=== PATIENT | female | born 1995 | race Caucasian/White ===

== ENCOUNTER 2017-02-10 18:54 | Emergency (ER) | payer OTHER ==
--- NOTE | 2017-02-10 19:59 | ED CLINICAL REPORT ---
Clinical Report - Physicians/Mid Levels [facility] [address] [place] [address] 02/10/2017 18:56 Patient: ABHIJIT APONTE Time Seen: 19:01. Arrived- By private vehicle. Historian- patient. HISTORY OF PRESENT ILLNESS Chief Complaint: MY THYROID IS SWELLING AND CLOSING MY THROAT. This started just prior to arrival Ms Aponte has a history of goiter. She is being treated for that by an animal nursery worker. Today while driving in her car she felt a ball like sensation in her throat. She took slow DEEP breaths, trying to calm herself. and is still present. (SUB ACUTE ONSET). Pain described as mild. No sore throat, mouth sores, nasal congestion, ear pain or toothache. No swollen jaw or face, jaw pain or facial pain. (Driving home, "Thyroid feels big. Throat feels tight and sqweeezing Vision goes weird and has spots. feels far away and faint." Ice and deep breaths were tried to relieve symptoms). Similar symptoms previously: Twice. Recent medical care: The patient was seen recently by a health care provider. ( Technical Sales Representative). REVIEW OF SYSTEMS No fatigue, fever, double vision, ear pain or sore throat. No chest pain, cough, difficulty breathing, abdominal pain or difficulty with urination. PAST HISTORY PCP JACKELYN F ENDOCRINEOLOGIST OPS: NONE [facility]OSP: [facility]. SOCIAL HISTORY Never smoker. ADDITIONAL NOTES The nursing notes have been reviewed (Nurse notes "swelling to anterior neck and ice pack. I confirm the ice pack but not the swelling.). PHYSICAL EXAM Vital Signs: 02/10/2017 20:03 HR: 81. O2 saturation: 98%. 02/10/2017 19:05 BP: 131/72. HR: 103. RR: 18. O2 saturation: 100%. Temp: 98.7 F. Appearance: Alert. (Normal speaking voice Initially anxious but rapidly calms.). Eyes: Pupils equal, round and reactive to light. Conjunctivae and eyelids normal. ENT: Pharynx normal. Lips normal. No trismus present. Uvula midline. No tonsillar exudate, peritonsillar mass, muffled or hoarse voice or drooling. The mucous membranes are not dry. Neck: Trachea midline. No adenopathy. Thyroid normal. (I cannot appreciate the goiter on palpation. There is normal thyroid cartilage crepitance on side to side movement.). CVS: Heart sounds normal. Respiratory: No respiratory distress. Breath sounds normal. Abdomen: Soft and nontender. PROGRESS AND PROCEDURES Course of Care: 12:45 02/13/17. Voluntary hyperventilation did not reproduce symptoms. No direct or indirect evidence of neck swelling or airway compromise. Given the ball like nature of the sensation and normal exam, the best explanation is cricopharyngeus muscle spasm not neck mass effect. The patient's goiter is of modest size. The other symptoms were very likely due patient's efforts to calm her self by hyperventilation. She feels better at the time of discharge. Disposition: Discharged. Condition: good. 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 INSTRUCTIONS (FOR ANOTHER EPISODE SLOW SHALLOW BREATHING IMMEDIATE RECHECK FOR DIFFICULTY SWALLOWING, DIFFICULTY BREATHING, SIGNIFICANT PAIN, OR CHANGED VOICE). Follow-up: Follow up with your doctor in seven days. Understanding of the discharge instructions verbalized by patient and family. (Electronically signed by Von Espinoza MD 02/13/2017 12:53)
--- NOTE | 2017-02-10 19:59 | ED CLINICAL REPORT ---
Clinical Report - Physicians/Mid Levels [facility] [address] [place] [address] 02/10/2017 18:56 Patient: ABHIJIT APONTE Time Seen: 19:01. Arrived- By private vehicle. Historian- patient. HISTORY OF PRESENT ILLNESS Chief Complaint: MY THYROID IS SWELLING AND CLOSING MY THROAT. This started just prior to arrival Ms Aponte has a history of goiter. She is being treated for that by an chef manager. Today while driving in her car she felt a ball like sensation in her throat. She took slow DEEP breaths, trying to calm herself. and is still present. (SUB ACUTE ONSET). Pain described as mild. No sore throat, mouth sores, nasal congestion, ear pain or toothache. No swollen jaw or face, jaw pain or facial pain. (Driving home, "Thyroid feels big. Throat feels tight and sqweeezing Vision goes weird and has spots. feels far away and faint." Ice and deep breaths were tried to relieve symptoms). Similar symptoms previously: Twice. Recent medical care: The patient was seen recently by a health care provider. ( Slot Supervisor). REVIEW OF SYSTEMS No fatigue, fever, double vision, ear pain or sore throat. No chest pain, cough, difficulty breathing, abdominal pain or difficulty with urination. PAST HISTORY PCP JACKELYN F ENDOCRINEOLOGIST OPS: NONE [facility]OSP: [facility]. SOCIAL HISTORY Never smoker. ADDITIONAL NOTES The nursing notes have been reviewed (Nurse notes "swelling to anterior neck and ice pack. I confirm the ice pack but not the swelling.). PHYSICAL EXAM Vital Signs: 02/10/2017 20:03 HR: 81. O2 saturation: 98%. 02/10/2017 19:05 BP: 131/72. HR: 103. RR: 18. O2 saturation: 100%. Temp: 98.7 F. Appearance: Alert. (Normal speaking voice Initially anxious but rapidly calms.). Eyes: Pupils equal, round and reactive to light. Conjunctivae and eyelids normal. ENT: Pharynx normal. Lips normal. No trismus present. Uvula midline. No tonsillar exudate, peritonsillar mass, muffled or hoarse voice or drooling. The mucous membranes are not dry. Neck: Trachea midline. No adenopathy. Thyroid normal. (I cannot appreciate the goiter on palpation. There is normal thyroid cartilage crepitance on side to side movement.). CVS: Heart sounds normal. Respiratory: No respiratory distress. Breath sounds normal. Abdomen: Soft and nontender. PROGRESS AND PROCEDURES Course of Care: 12:45 02/13/17. Voluntary hyperventilation did not reproduce symptoms. No direct or indirect evidence of neck swelling or airway compromise. Given the ball like nature of the sensation and normal exam, the best explanation is cricopharyngeus muscle spasm not neck mass effect. The patient's goiter is of modest size. The other symptoms were very likely due patient's efforts to calm her self by hyperventilation. She feels better at the time of discharge. Disposition: Discharged. Condition: good. 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 INSTRUCTIONS (FOR ANOTHER EPISODE SLOW SHALLOW BREATHING IMMEDIATE RECHECK FOR DIFFICULTY SWALLOWING, DIFFICULTY BREATHING, SIGNIFICANT PAIN, OR CHANGED VOICE). Follow-up: Follow up with your doctor in seven days. Understanding of the discharge instructions verbalized by patient and family. (Electronically signed by Von Espinoza MD 02/13/2017 12:53)
--- NOTE | 2017-02-10 19:59 | ED NURSING NOTES ---
Clinical Report - Nurses [facility] [address] [place] [address] 02/10/2017 18:56 Patient: ABHIJIT APONTE TRIAGE Triage time 1900. Chief Complaint: (thyroid swelling). Alert. No acute distress. (in distress, anxious). --19:11 Heather Rosario 19:05 02/10/17. BP: 131/72. HR: 103. RR: 18. O2 saturation: 100%. Temp: 98.7 F. Pain level now 5/10. --19:11 Heather Rosario. Weight: 81.6 kg. Height/Length: 68 inches. BMI: 27.4. --19: Heather Rosario. Medications Vitamin D Oral. --19: Heather Rosario. Allergies No Known Drug Allergy. --19: Heather Rosario. History Arrived by private vehicle. Historian: patient. Accompanied by family. This started today. 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 (known cysts, normal labs, seeing thyroid Dr, placed on Vit D). PAST MEDICAL HX: Immunizations: up-to-date. SOCIAL HX: Never smoker. Occasional alcohol use. History of drug use: marijuana. --19:11 Heather Rosario. PROBLEMS: Gastroesophageal Reflux Disease. --19:07 Heather Rosario. PHYSICAL ASSESSMENT Ambulatory to room. ( Swelling to anterior neck, pt with ice pack on to help). GENERAL / NEURO / PSYCH: Alert. Oriented X 4. Appears anxious and in distress. HEENT: Pupils equal, round and reactive to light. No facial asymmetry noted. Mucous membranes are pink. RESPIRATORY: Respirations not labored. Chest nontender. Breath sounds within normal limits. CVS: Normal sinus rhythm noted. Capillary refill less than 2 seconds. Pulses within normal limits. GI / : Abdomen soft and nontender and normal bowel sounds. SKIN: Skin is warm but moist. --19:12 Heather Rosario. NURSING PROGRESS NOTES Reassurance given. Call light placed in reach. Bed placed in lowest position. Brakes of bed on. Patient ready for evaluation- chart flagged. --19:12 Heather Roasrio 20:03. The patient is calm and resting quietly. RESPIRATORY: No respiratory distress. SKIN: Skin is warm and dry. Skin color within normal limits. --21:19 Mohit Sanchez R.N. DISPOSITION / DISCHARGE Departure time: 20:05. Condition at departure: stable. No learning barriers present. Discharge instructions provided and reviewed with shipping clerk and the patient. Patient and shipping clerk verbalized understanding. Written instructions provided in Kyrgyz. The patient was discharged home and accompanied by shipping clerk. She left the Emergency Department ambulatory and via private vehicle. Spoke Maker driving. FALL RISK ASSESSMENT: Fall risk assessment completed. No fall risk identified. --20:05 Mohit Sanchez R.N. 20:03 02/10/17. HR: 81. O2 saturation: 98% on room air. --20:05 Mohit Sanchez R.N. Locked/Released at 02/10/2017 21:19 by Mohit Sanchez R.N.
--- NOTE | 2017-02-10 19:59 | ED NURSING NOTES ---
Clinical Report - Nurses [facility] [address] [place] [address] 02/10/2017 18:56 Patient: ABHIJIT APONTE TRIAGE Triage time 1900. Chief Complaint: (thyroid swelling). Alert. No acute distress. (in distress, anxious). --19:11 Heather Rosario 19:05 02/10/17. BP: 131/72. HR: 103. RR: 18. O2 saturation: 100%. Temp: 98.7 F. Pain level now 5/10. --19:11 Heather Rosario. Weight: 81.6 kg. Height/Length: 68 inches. BMI: 27.4. --19: Heather Rosario. Medications Vitamin D Oral. --19: Heather Rosario. Allergies No Known Drug Allergy. --19: Heather Rosario. History Arrived by private vehicle. Historian: patient. Accompanied by family. This started today. 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 (known cysts, normal labs, seeing thyroid Dr, placed on Vit D). PAST MEDICAL HX: Immunizations: up-to-date. SOCIAL HX: Never smoker. Occasional alcohol use. History of drug use: marijuana. --19:11 Heather Rosario. PROBLEMS: Gastroesophageal Reflux Disease. --19:07 Heather Rosario. PHYSICAL ASSESSMENT Ambulatory to room. ( Swelling to anterior neck, pt with ice pack on to help). GENERAL / NEURO / PSYCH: Alert. Oriented X 4. Appears anxious and in distress. HEENT: Pupils equal, round and reactive to light. No facial asymmetry noted. Mucous membranes are pink. RESPIRATORY: Respirations not labored. Chest nontender. Breath sounds within normal limits. CVS: Normal sinus rhythm noted. Capillary refill less than 2 seconds. Pulses within normal limits. GI / : Abdomen soft and nontender and normal bowel sounds. SKIN: Skin is warm but moist. --19:12 Heather Rosario. NURSING PROGRESS NOTES Reassurance given. Call light placed in reach. Bed placed in lowest position. Brakes of bed on. Patient ready for evaluation- chart flagged. --19:12 Heather Rosario 20:03. The patient is calm and resting quietly. RESPIRATORY: No respiratory distress. SKIN: Skin is warm and dry. Skin color within normal limits. --21:19 Mohit Sanchez R.N. DISPOSITION / DISCHARGE Departure time: 20:05. Condition at departure: stable. No learning barriers present. Discharge instructions provided and reviewed with police artist and the patient. Patient and police artist verbalized understanding. Written instructions provided in Sierra Leonean. The patient was discharged home and accompanied by police artist. She left the Emergency Department ambulatory and via private vehicle. Survey Research Teacher driving. FALL RISK ASSESSMENT: Fall risk assessment completed. No fall risk identified. --20:05 Mohit Sanchez R.N. 20:03 02/10/17. HR: 81. O2 saturation: 98% on room air. --20:05 Mohit Sanchez R.N. Locked/Released at 02/10/2017 21:19 by Mohit Sanchez R.N.
--- NOTE | 2017-02-13 12:53 | ED DISCHARGE INSTRUCTIONS ---
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 INSTRUCTIONS (FOR ANOTHER EPISODE SLOW SHALLOW BREATHING IMMEDIATE RECHECK FOR DIFFICULTY SWALLOWING, DIFFICULTY BREATHING, SIGNIFICANT PAIN, OR CHANGED VOICE). Follow-up: Follow up with your doctor in seven days. Understanding of the discharge instructions verbalized by patient and family. (Electronically signed by Von Espinoza MD 02/13/2017 12:53)
--- NOTE | 2017-02-13 12:53 | ED MED RECONCILIATION SUMMARY ---
Patient: ABHIJIT APONTE Medication Reconciliation Report [facility] VisitID: [id number] [address] [place] [address] 21y, F Registration Date/Time: 02/10/2017 Weight: 81.6 kg Height/Length: 68 in. BMI: 27.4 ALLERGIES: No Known Drug Allergy The patient's Home Medications are listed below: THE FOLLOWING MEDICATIONS NEED TO BE RECONCILED: Vitamin D Oral The source(s) of the original Home Medication information: Not obtained. The following Medications were given to the patient in the Emergency Department: None. The following Medications were prescribed to the patient: None.
--- NOTE | 2017-02-13 12:53 | ED MAR SUMMARY ---
..... Medication Administration Record [facility] [address] [place], [place] [id number] Patient: ABHIJIT APONTE Visit ID: [id number] 21y, F Weight: 81.6 kg Height/Length: 68 in BMI: 27.4 ALLERGIES: No Known Drug Allergy
--- NOTE | 2017-02-13 12:53 | ED MAR SUMMARY ---
..... Medication Administration Record [facility] [address] [place], [place] [id number] Patient: ABHIJIT APONTE Visit ID: [id number] 21y, F Weight: 81.6 kg Height/Length: 68 in BMI: 27.4 ALLERGIES: No Known Drug Allergy
--- NOTE | 2017-02-13 12:53 | ED MED RECONCILIATION SUMMARY ---
Patient: ABHIJIT APONTE Medication Reconciliation Report [facility] VisitID: [id number] [address] [place] [place] [address] 21y, F Registration Date/Time: 02/10/2017 Weight: 81.6 kg Height/Length: 68 in. BMI: 27.4 ALLERGIES: No Known Drug Allergy The patient's Home Medications are listed below: THE FOLLOWING MEDICATIONS NEED TO BE RECONCILED: Vitamin D Oral The source(s) of the original Home Medication information: Not obtained. The following Medications were given to the patient in the Emergency Department: None. The following Medications were prescribed to the patient: None.
--- NOTE | 2017-02-13 12:53 | ED DISCHARGE INSTRUCTIONS ---
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 INSTRUCTIONS (FOR ANOTHER EPISODE SLOW SHALLOW BREATHING IMMEDIATE RECHECK FOR DIFFICULTY SWALLOWING, DIFFICULTY BREATHING, SIGNIFICANT PAIN, OR CHANGED VOICE). Follow-up: Follow up with your doctor in seven days. Understanding of the discharge instructions verbalized by patient and family. (Electronically signed by Von Espinoza MD 02/13/2017 12:53)
== END 2017-02-10 20:05 | disposition home or self-care (01) ==
LOC: ED SRH 18:54
DX: E07.9 Disorder of thyroid, unspecified (principal)